=== PATIENT | female | born 1995 | race Caucasian/White ===

== ENCOUNTER 2018-07-05 22:09 | Emergency (ER) | payer OTHER ==
[~2018-07-05] VITALS: Ht 157.5 cm; Wt 52.2 kg
--- NOTE | 2018-07-05 23:02 | NUR ---
BIBSELF C/O HEADACHE SINCE AM. S/P YOGA. PT AWAKE, ALERT, FOLLOW COMMANDS. NO ACUTE DISTRESS NOTED. AFEBRILE, WAITING FOR MD EVALUATION.
[2018-07-05 23:44] LABS: BASOPHILS % (AUTO) 0.3 % (0.0-2.0); EOSINOPHILS % (AUTO) 1.3 % (0.0-6.0); HEMATOCRIT 38 % (33-45); HEMOGLOBIN 12.6 g/dL (11.5-14.8); LYMPHOCYTES # (AUTO) 2.3 /CMM (0.8-4.8); LYMPHOCYTES % (AUTO) 34.6 % (20.0-44.0); MEAN CORPUSCULAR HGB CONC 33 g/dl (31.0-36.0); MEAN CORPUSCULAR VOLUME 94 fL (82-100); MONOCYTES # (AUTO) 0.5 /CMM (0.1-1.30); MONOCYTES % (AUTO) 7.6 % (2.0-12.0); NEUTROPHILS # (AUTO) 3.7 /CMM (1.8-8.9); NEUTROPHILS % (AUTO) 56.2 % (43.0-81.0); PLATELET COUNT (AUTO) 148 /CMM (150-450); RDW COEFFICIENT OF VARIATION 13.1 (11.5-15.0); RED BLOOD CELL COUNT(AUTO) 4.05 MIL/uL (4.0-5.2); WHITE BLOOD COUNT (AUTO) 6.5 K/uL (4.3-11.0)
[2018-07-05 23:56] LABS: CALCIUM, SERUM 8.5 mg/dL (8.5-10.1); CARBON DIOXIDE 28 mmol/L (21-32); CHLORIDE 104 mmol/L (98-107); CREATININE 0.9 mg/dL (0.6-1.3); GLUCOSE 119 mg/dL (74-106); POTASSIUM 3.5 mmol/L (3.5-5.1); SODIUM SERUM 141 mmol/L (136-145); UREA NITROGEN, BLOOD 12 mg/dL (7-18)
[2018-07-06] MEDS ORDERED: LIDOCAINE 2% 20 ML MDV ONE (00:56)
[2018-07-06 01:34] LABS: CSF GLUCOSE 66 mg/dL (40-70); CSF PROTEIN 20.8 mg/dL (15-45)
[2018-07-06 03:25] VITALS: BP 110/55
== END 2018-07-06 03:24 | disposition home or self-care (01) ==
LOC: ER 22:10
DX: R51 Headache (principal); R11.0 Nausea; H53.8 Other visual disturbances; Z60.2 Problems related to living alone
CPT/HCPCS: 36415; 62270; 70450; 80048; 85025; 85730; 89051; 99285; A4606; J3490; Z7610